=== PATIENT | female | born 1975 | race African-American/Black ===

== ENCOUNTER 2018-01-25 11:13 | Emergency (ER) | payer OTHER ==
[2018-01-25] MEDS: HYDROcodone/APAP 5/325MG 1 TAB TABLET PO (11:45)
== END 2018-01-25 13:40 | disposition home or self-care (01) ==
LOC: ER 11:13
DX: M25.512 Pain in left shoulder (principal); M25.552 Pain in left hip; R07.89 Other chest pain; E11.9 Type 2 diabetes mellitus without complications; I10 Essential (primary) hypertension; Z98.51 Tubal ligation status; V48.5XXA Car driver injured in noncollision transport accident in traffic accident, initial encounter; Y93.I9 Activity, other involving external motion; Y92.410 Unspecified street and highway as the place of occurrence of the external cause; Y99.8 Other external cause status
CPT/HCPCS: 71046; 73030; 73502; 99284

== ENCOUNTER 2018-02-28 21:23 | Emergency (ER) | payer OTHER ==
[2018-02-28 22:04] LABS: ADD MAN DIFF? NO
[2018-02-28 22:06] LABS: BASO # 0.1 x10^3/uL (0.0-0.2); BASO % 1 % (0-3); EOS # 0.3 x10^3/uL (0.0-0.7); EOS % 2 % (0-3); HEMATOCRIT 33.2 % (36.0-47.0); HEMOGLOBIN 11.4 g/dL (12.0-15.5); LYMPH # 3.9 x10^3/uL (1.0-4.8); LYMPH % 34 % (24-48); MEAN CORPUSCULAR HEMOGLOBIN 25 pg (25-35); MEAN CORPUSCULAR HGB CONC 34 g/dL (31-37); MEAN CORPUSCULAR VOLUME 73 fL (79-100); MONO # 0.8 x10^3/uL (0.0-1.1); MONO % 7 % (0-9); NEUT # 6.5 x10^3uL (1.8-7.7); NEUT % 56 % (31-73); PLATELET COUNT 418 x10^3/uL (140-400); RED BLOOD COUNT 4.57 x10^6/uL (3.50-5.40); RED CELL DISTRIBUTION WIDTH 17.1 % (11.5-14.5); WHITE BLOOD COUNT 11.6 x10^3/uL (4.0-11.0)
[2018-02-28] MEDS: ASPIRIN CHEWABLE 81 MG TABLET. PO (22:12)
[2018-02-28] MEDS: DEXAMETHASONE SOD PHOS 4 MG/ML VIAL IV (22:13)
[2018-02-28] MEDS: IV NORMAL SALINE 1000ML BAG 1,000 ML IV (22:14)
[2018-02-28 22:16] LABS: ANION GAP 8 (6-14); BLOOD UREA NITROGEN 8 mg/dL (7-20); BUN/CREATININE RATIO 7 (6-20); CALCIUM 8.9 mg/dL (8.5-10.1); CARBON DIOXIDE 23 mmol/L (21-32); CHLORIDE 104 mmol/L (98-107); CREATININE 1.1 mg/dL (0.6-1.0); GFR 65.6; GLUCOSE 116 mg/dL (70-99); POTASSIUM 3.5 mmol/L (3.5-5.1); SODIUM 135 mmol/L (136-145)
[2018-02-28 22:23] LABS: URINE HCG POC HCG NEGATIVE (Negative)
[2018-02-28 22:24] LABS: TROPONINI < 0.017 ng/mL (0.000-0.055)
[2018-02-28 22:24] LABS: BILIRUBIN,URINE NEGATIVE (NEG); CLARITY,URINE CLEAR; COLOR,URINE YELLOW; GLUCOSE,URINE NEGATIVE (NEG); NITRITE,URINE NEGATIVE (NEG); PH,URINE 5.5; PROTEIN,URINE NEGATIVE (NEG-TRACE); UROBILINOGEN,URINE 0.2 mg/dL (0.2 mg/dL)
[2018-02-28 22:26] LABS: ALBUMIN 3.2 g/dL (3.4-5.0); ALBUMIN/GLOBULIN RATIO 0.8 (1.0-1.7); ALK PHOS 80 U/L (46-116); ALT (SGPT) 15 U/L (14-59); AST (SGOT) 16 U/L (15-37); MAGNESIUM 1.8 mg/dL (1.8-2.4); TOTAL BILIRUBIN 0.3 mg/dL (0.2-1.0); TOTAL PROTEIN 7.2 g/dL (6.4-8.2)
[2018-02-28 22:29] LABS: CKMB INDEX 0.7 % (0-4); CKMB MASS 1.5 ng/mL (0.0-3.6); CREATINE KINASE 221 U/L (26-192)
[2018-02-28 22:30] LABS: AMPHETAMINE/METHAMPHETAMINE NEG (NEG); BARBITURATES NEG (NEG); BENZODIAZEPINES NEG (NEG); CANNABINOIDS NEG (NEG); COCAINE NEG (NEG); ETHANOL, URINE NEG (NEG); METHADONE NEG (NEG); OPIATES NEG (NEG); PHENCYCLIDINE NEG (NEG)
[2018-02-28 22:35] LABS: BACTERIA,URINE 0 /HPF (0-FEW); SQUAMOUS EPITHELIAL CELL,UR MOD /LPF; WBC,URINE OCC /HPF (0-4)
[2018-02-28] MEDS: ACETAMINOPHEN 325 MG TABLET. PO (22:40)
== END 2018-02-28 23:00 | disposition home or self-care (01) ==
LOC: ER 21:23
DX: R07.89 Other chest pain (principal); E11.9 Type 2 diabetes mellitus without complications; I10 Essential (primary) hypertension; Z98.51 Tubal ligation status
CPT/HCPCS: 36415; 71046; 80053; 80307; 81001; 81025; 82553; 83735; 84484; 85025; 87086; 93005; 96361; 96374; 99285-25; J1100; J7030

== ENCOUNTER 2018-12-01 20:01 | Emergency (ER) | payer OTHER ==
[~2018-12-01] VITALS: Ht 177.8 cm; Wt 115.7 kg
[~2018-12-01 20:01] MED LIST: ATEN50TA PO; CYCL10TA2 PO; HYDR-2761 PO; HYDR-3164 PO; LISI-334 PO; METH4TAB2 PO; NAPR-682 PO; ORPH100T PO
--- NOTE | 2018-12-01 20:44 | PHYS DOC ---
Past Medical History Past Medical History: Diabetes-Type II, Hypertension Additional Past Medical Histor: EMPTY TIMMY SYNDROME Past Surgical History: Tubal ligation Additional Past Surgical Histo: CARPAL TUNNEL SX Alcohol Use: None Drug Use: None Adult General Chief Complaint Chief Complaint: CHEST PAIN [facility] HPI Patient is a 43-year-old female who presents with complaint of one month long history of chest pain to left of midline. Patient describes pain as sharp and stabbing in nature. She states the pain is intermittent. She denies any exacerbating or alleviating factors. Patient also states over the last 2 weeks that she has had some dizziness and last night the dizziness and gotten so severe that she became nauseated and vomited twice. She describes the dizziness as feeling like she is in a fall and sometimes feeling like things are spinning. Patient states that she was scheduled to go see a document management specialist but states the document management specialist is not able to get her in to see her until early in December. She rates the pain in her chest that a 7 out of 10. She denies any shortness of breath and states that she has had no cough. Patient also admits that she has some swelling and pain in her left leg. Review of Systems Review of Systems Constitutional: Denies fever or chills [] Respiratory: Denies cough or shortness of breath [] Cardiovascular: No additional information not addressed in HPI [] GI: Denies abdominal pain. Complains of nausea and vomiting without diarrhea [] Musculoskeletal: Denies back pain or joint pain [] Integument: Denies rash or skin lesions [] Neurologic: Denies headache, focal weakness or sensory changes [] All other systems were reviewed and found to be within normal limits, except as documented in this note. Current Medications Current Medications Current Medications Medications (Trade) Dose Ordered Sig/[facility] Start Time Stop Time Status Last Admin Dose Admin Aspirin (Children'S Aspirin) 324 mg 1X ONCE 12/01/18 20:45 12/01/18 20:46 DC 12/01/18 21:13 324 MG Allergies Allergies Allergies Coded Allergies Type Severity Reaction Last Updated Verified No Known Drug Allergies 01/17/14 No Physical Exam Physical Exam Constitutional: Well developed, well nourished, no acute distress, non-toxic appearance. [] HENT: Normocephalic, atraumatic, bilateral external ears normal, oropharynx moist, no oral exudates, nose normal. [] Eyes: PERRLA, EOMI, conjunctiva normal, no discharge. [] Neck: Normal range of motion, no tenderness, supple, no stridor. [] Cardiovascular:Heart rate regular rhythm, no murmur [] Lungs & Thorax: Bilateral breath sounds clear to auscultation [] Abdomen: Bowel sounds normal, soft, no tenderness. [] Skin: Warm, dry, no erythema, no rash. [] Extremities: No cyanosis, no clubbing, ROM intact. [] Neurologic: Alert and oriented X 3, no focal deficits noted. [] Current Patient Data Vital Signs Vital Signs Date Time Temp Pulse Resp B/P (MAP) Pulse Ox O2 Delivery O2 Flow Rate FiO2 12/01/18 20:14 98.6 63 18 115/60 (78) 98 Room Air 98.6 Lab Values Laboratory Tests Test 12/01/18 20:29 12/01/18 21:05 12/01/18 21:18 White Blood Count 9.3 x10^3/uL (4.0-11.0) Red Blood Count 4.59 x10^6/uL (3.50-5.40) Hemoglobin 9.6 g/dL (12.0-15.5) L Hematocrit 29.7 % (36.0-47.0) L Mean Corpuscular Volume 65 fL (79-100) L Mean Corpuscular Hemoglobin 21 pg (25-35) L Mean Corpuscular Hemoglobin Concent 32 g/dL (31-37) Red Cell Distribution Width 18.9 % (11.5-14.5) H Platelet Count 456 x10^3/uL (140-400) H Neutrophils (%) (Auto) 48 % (31-73) Lymphocytes (%) (Auto) 42 % (24-48) Monocytes (%) (Auto) 6 % (0-9) Eosinophils (%) (Auto) 2 % (0-3) Basophils (%) (Auto) 1 % (0-3) Neutrophils # (Auto) 4.5 x10^3uL (1.8-7.7) Lymphocytes # (Auto) 3.9 x10^3/uL (1.0-4.8) Monocytes # (Auto) 0.6 x10^3/uL (0.0-1.1) Eosinophils # (Auto) 0.2 x10^3/uL (0.0-0.7) Basophils # (Auto) 0.1 x10^3/uL (0.0-0.2) Segmented Neutrophils % 55 % (35-66) Lymphocytes % 31 % (24-48) Monocytes % 8 % (0-10) Eosinophils % 5 % (0-5) Basophils % 1 % (0-3) Platelet Estimate Increased (ADEQUATE) Large Platelets Occ Giant Platelets Occ Polychromasia Slight Target Cells Occ Helmet Cells Occ D-Dimer (Blessing) 0.44 ug/mlFEU (0.00-0.50) Sodium Level 141 mmol/L (136-145) Potassium Level 4.3 mmol/L (3.5-5.1) Chloride Level 107 mmol/L (98-107) Carbon Dioxide Level 23 mmol/L (21-32) Anion Gap 11 (6-14) Blood Urea Nitrogen 12 mg/dL (7-20) Creatinine 0.9 mg/dL (0.6-1.0) Estimated GFR (Cockcroft-Gault) 82.3 BUN/Creatinine Ratio 13 (6-20) Glucose Level 123 mg/dL (70-99) H Calcium Level 9.3 mg/dL (8.5-10.1) Magnesium Level 1.9 mg/dL (1.8-2.4) Total Bilirubin 0.2 mg/dL (0.2-1.0) Aspartate Amino Transferase (AST) 20 U/L (15-37) Alanine Aminotransferase (ALT) 18 U/L (14-59) Alkaline Phosphatase 88 U/L (46-116) Troponin I Quantitative < 0.017 ng/mL (0.000-0.055) HO-Ydv-A-Type Natriuretic Peptide 71 pg/mL (0-124) Total Protein 7.2 g/dL (6.4-8.2) Albumin 3.1 g/dL (3.4-5.0) L Albumin/Globulin Ratio 0.8 (1.0-1.7) L Lipase 250 U/L (73-393) Urine Color Yellow Urine Clarity Clear Urine pH 5.5 Urine Specific [place] 1.025 Urine Protein Negative mg/dL (NEG-TRACE) Urine Glucose (UA) Negative mg/dL (NEG) Urine Ketones (Stick) Negative mg/dL (NEG) Urine Blood Negative (NEG) Urine Nitrite Negative (NEG) Urine Bilirubin Negative (NEG) Urine Urobilinogen Dipstick 1.0 mg/dL (0.2 mg/dL) Urine Leukocyte Esterase Negative (NEG) Urine RBC 0 /HPF (0-2) Urine WBC 1-4 /HPF (0-4) Urine Squamous Epithelial Cells Occ /LPF Urine Bacteria 0 /HPF (0-FEW) Urine Mucus Mod /LPF POC Urine HCG, Qualitative Hcg negative (Negative) Laboratory Tests 12/01/18 20:29 Laboratory Tests 12/01/18 20:29 EKG EKG [] Interpretation Time: EKG demonstrates normal sinus rhythm with rate of 62. Radiology/Procedures Radiology/Procedures [] Impressions: PROCEDURE: PORTABLE CHEST 1V CLINICAL INDICATION: chest pain x1 month. radiating down left arm COMPARISON: 02/28/2018 FINDINGS: No pneumothorax identified. Cardiac and mediastinal contours unremarkable. No pulmonary consolidation or acute airspace disease. No acute osseous abnormalities identified. IMPRESSION: No pulmonary consolidation or acute airspace disease. Electronically signed by: Jesus Nielson DO (12/01/2018 10:06 PM) [facility] Course & Med Decision Making Course & Med Decision Making Pertinent Labs and Imaging studies reviewed. (See chart for details) She moved to room upon arrival was evaluated by your medical staff after which a cardiac workup was initiated. Cardiac workup has returned unremarkable. Findings reviewed with patient and given length of time before she is able to get in to see a document management specialist, I did offer admission with cardiology consult. Patient states that she does not want to be admitted and wants to be discharged home. Dragon Disclaimer Dragon Disclaimer This electronic medical record was generated, in whole or in part, using a voice recognition dictation system. Departure Departure Impression: Primary Impression: Atypical chest pain Additional Impression: Vertigo Disposition: 01 HOME, SELF-CARE Condition: STABLE Referrals: BHAVESH TATE MD (PCP) Patient Instructions: Chest Pain (Nonspecific), Vertigo Scripts Meclizine Hcl (MECLIZINE HCL) 25 Mg Tablet 25 MG PO PRN TID PRN for DIZZINESS, #30 dizziness Prov: ELMER DAMIAN Jr. DO 12/01/18 Tramadol Hcl (TRAMADOL HCL) 50 Mg Tablet 50 MG PO Q6HRS PRN for PAIN, #12 TAB Prov: ELMER DAMIAN Jr. DO 12/01/18 Ondansetron Hcl (ZOFRAN) 4 Mg Tablet 4 MG PO PRN TID PRN for NAUSEA, #15 nausea/vomiting Prov: ELMER DAMIAN Jr. DO 12/01/18 Problem Qualifiers ELMER DAMIAN Jr. DO Dec 01, 2018 20:44
[2018-12-01] MEDS ORDERED: ASPIRIN CHEWABLE 81 MG TABLET. PO ONE (20:45)
[2018-12-01 20:49] LABS: BASO # 0.1 x10^3/uL (0.0-0.2); BASO % 1 % (0-3); EOS # 0.2 x10^3/uL (0.0-0.7); EOS % 2 % (0-3); HEMATOCRIT 29.7 % (36.0-47.0); HEMOGLOBIN 9.6 g/dL (12.0-15.5); LYMPH # 3.9 x10^3/uL (1.0-4.8); LYMPH % 42 % (24-48); MEAN CORPUSCULAR HEMOGLOBIN 21 pg (25-35); MEAN CORPUSCULAR HGB CONC 32 g/dL (31-37); MEAN CORPUSCULAR VOLUME 65 fL (79-100); MONO # 0.6 x10^3/uL (0.0-1.1); MONO % 6 % (0-9); NEUT # 4.5 x10^3uL (1.8-7.7); NEUT % 48 % (31-73); PLATELET COUNT 456 x10^3/uL (140-400); RED BLOOD COUNT 4.59 x10^6/uL (3.50-5.40); RED CELL DISTRIBUTION WIDTH 18.9 % (11.5-14.5); WHITE BLOOD COUNT 9.3 x10^3/uL (4.0-11.0)
[2018-12-01 20:55] LABS: CALCIUM 9.3 mg/dL (8.5-10.1); CREATININE 0.9 mg/dL (0.6-1.0); GFR 82.3; POTASSIUM 4.3 mmol/L (3.5-5.1)
[2018-12-01 21:01] LABS: ALBUMIN 3.1 g/dL (3.4-5.0); ALBUMIN/GLOBULIN RATIO 0.8 (1.0-1.7); MAGNESIUM 1.9 mg/dL (1.8-2.4); TOTAL BILIRUBIN 0.2 mg/dL (0.2-1.0); TOTAL PROTEIN 7.2 g/dL (6.4-8.2)
[2018-12-01 21:26] LABS: BILIRUBIN,URINE NEGATIVE (NEG); CLARITY,URINE CLEAR; COLOR,URINE YELLOW; NITRITE,URINE NEGATIVE (NEG); PH,URINE 5.5; PROTEIN,URINE NEGATIVE (NEG-TRACE)
[2018-12-01 21:35] LABS: BACTERIA,URINE 0 /HPF (0-FEW); RBC,URINE 0 /HPF (0-2); SQUAMOUS EPITHELIAL CELL,UR OCC /LPF
[2018-12-01 21:49] LABS: % BASOS 1 % (0-3); % EOS 5 % (0-5); % LYMPHS 31 % (24-48); % MONOS 8 % (0-10); % SEGS 55 % (35-66)
[2018-12-01 21:50] LABS: HELMET CELLS OCC; PLT ESTIMATE INCREASED (ADEQUATE); POLYCHROMASIA SLIGHT; TARGET CELLS OCC
--- NOTE | 2018-12-01 21:58 | EKG ---
[facility] [address] [place] [address] Test Date: 2018-12-01 Test Time: 20:14:21 Pat Name: KLEVER VALERA Department: Room: Gender: F Teacher Specialist: : 1975 Requested By: ELMER DAMIAN Order Number: [id number] Reading MD: Measurements Intervals [place] Rate: 61 P: 50 CA: 148 QRS: 33 QRSD: 84 T: -24 QT: 406 QTc: 414 Interpretive Statements SINUS RHYTHM T ABNORMALITY IN HIGH LATERAL LEADS INFERIOR LEADS ABNORMAL ECG No previous ECG available for comparison
[2018-12-01 22:10] VITALS: BP 133/84
--- NOTE | 2018-12-01 22:10 | RAD ---
PROCEDURE: PORTABLE CHEST 1V CLINICAL INDICATION: chest pain x1 month. radiating down left arm COMPARISON: 02/28/2018 FINDINGS: No pneumothorax identified. Cardiac and mediastinal contours unremarkable. No pulmonary consolidation or acute airspace disease. No acute osseous abnormalities identified. IMPRESSION: No pulmonary consolidation or acute airspace disease. Electronically signed by: Jesus Nielson DO (12/01/2018 10:06 PM) [facility]
[2018-12-01] MEDS ORDERED: TRAM50TA PO (22:20)
[2018-12-01] MEDS ORDERED: MECL25TA3 PO (22:20)
[2018-12-01] MEDS ORDERED: ONDA4TAB7 PO (22:20)
== END 2018-12-01 22:54 | disposition home or self-care (01) ==
LOC: ER 20:01
DX: R07.89 Other chest pain (principal); R42 Dizziness and giddiness; R11.2 Nausea with vomiting, unspecified; I10 Essential (primary) hypertension; E11.9 Type 2 diabetes mellitus without complications; Z98.51 Tubal ligation status
CPT/HCPCS: 36415; 71045; 80053; 81001; 81025; 83690; 83735; 83880; 84484; 85007; 85025; 85379; 93005; 99284-25

== ENCOUNTER 2019-04-30 10:50 | Emergency (ER) | payer MEDICAID, OTHER ==
[~2019-04-30] VITALS: Ht 177.8 cm; Wt 117.9 kg
[~2019-04-30 10:50] MED LIST changes: +MECL25TA3 PO; +ONDA4TAB7 PO; +TRAM50TA PO
[2019-04-30] MEDS ORDERED: fentaNYL PF VIAL 100 MCG/2 ML VIAL IV ONE (11:30)
[2019-04-30 11:33] LABS: BASO # 0.1 x10^3/uL (0.0-0.2); BASO % 1 % (0-3); EOS # 0.3 x10^3/uL (0.0-0.7); EOS % 3 % (0-3); HEMATOCRIT 30.6 % (36.0-47.0); HEMOGLOBIN 9.8 g/dL (12.0-15.5); LYMPH # 2.4 x10^3/uL (1.0-4.8); LYMPH % 30 % (24-48); MEAN CORPUSCULAR HEMOGLOBIN 21 pg (25-35); MEAN CORPUSCULAR HGB CONC 32 g/dL (31-37); MEAN CORPUSCULAR VOLUME 66 fL (79-100); MONO # 0.5 x10^3/uL (0.0-1.1); MONO % 6 % (0-9); NEUT # 4.9 x10^3uL (1.8-7.7); NEUT % 60 % (31-73); PLATELET COUNT 386 x10^3/uL (140-400); RED BLOOD COUNT 4.65 x10^6/uL (3.50-5.40); RED CELL DISTRIBUTION WIDTH 20.6 % (11.5-14.5); WHITE BLOOD COUNT 8.2 x10^3/uL (4.0-11.0)
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
[2019-04-30 11:54] LABS: CALCIUM 8.7 mg/dL (8.5-10.1); CREATININE 0.8 mg/dL (0.6-1.0); GFR 94.3; POTASSIUM 3.9 mmol/L (3.5-5.1)
[2019-04-30 11:59] LABS: ALBUMIN/GLOBULIN RATIO 0.8 (1.0-1.7); MAGNESIUM 1.7 mg/dL (1.8-2.4); TOTAL BILIRUBIN 0.4 mg/dL (0.2-1.0)
[2019-04-30 12:08] LABS: PROTHROMBIN TIME PATIENT 12.6 SEC (11.7-14.0)
[2019-04-30 12:12] LABS: D-DIMER 0.78 ug/mlFEU (0.00-0.50)
[2019-04-30 12:32] LABS: BILIRUBIN,URINE NEGATIVE (NEG); CLARITY,URINE CLEAR; COLOR,URINE YELLOW; NITRITE,URINE NEGATIVE (NEG); PH,URINE 6.5; PROTEIN,URINE NEGATIVE (NEG-TRACE); UROBILINOGEN,URINE 0.2 mg/dL (0.2 mg/dL)
[2019-04-30 12:42] LABS: BACTERIA,URINE 0 /HPF (0-FEW); RBC,URINE 0 /HPF (0-2)
[2019-04-30] MEDS ORDERED: CONTRAST GIVEN. MC PRN (12:45)
[2019-04-30] MEDS ORDERED: IOHEXOL 350 MG/ML 100 ML VIAL. IV ONE (13:00)
--- NOTE | 2019-04-30 13:05 | EKG ---
[facility] [address] [place] [address] Test Date: 2019-04-30 Test Time: 11:03:13 Pat Name: KLEVER COX Department: Room: Gender: F Manager Product Management: : 1975 Requested By: CONSUELO ANDERSON Order Number: [id number] Reading MD: Measurements Intervals [place] Rate: 54 P: 58 [place]: 152 QRS: 41 QRSD: 84 T: 8 QT: 472 QTc: 449 Interpretive Statements SINUS RHYTHM NON SPECIFIC T ABNORMALITY BORDERLINE ECG No previous ECG available for comparison
--- NOTE | 2019-04-30 13:18 | RAD ---
Examination: CT ANGIOGRAPHY CHEST History: Right side chest pain, elevated d-dimer, recent surgery history. Comparison/Correlation: None Findings: Axial images of chest were obtained following IV contrast: To pulmonary arteriography protocol. MIP images were provided. Sagittal and coronal reformatted images were provided. Radiopaque density is present within the superior left chest wall subcutaneous fat measuring up to 0.4 cm diameter. No surrounding inflammatory change about this foreign body. Tracheobronchial tree is unremarkable. No infiltrates. No pleural effusion or pericardial effusion. No mass. No enlarged thoracic lymph nodes. Pulmonary arterial vasculature is normal with no thromboembolic disease. Thoracic aorta is not optimally opacified for arteriographic assessment but is grossly unremarkable. Dilated cardiomegaly is present. Bony structures are unremarkable for the patient's age. Impression: Dilated cardiomegaly. No pulmonary arterial thromboembolic disease. No infiltrate. PQRS Compliance Statement: One or more of the following individualized dose reduction techniques were utilized for this examination: 1. Automated exposure control 2. Adjustment of the mA and/or kV according to patient size 3. Use of iterative reconstruction technique Electronically signed by: Jeremias Aguirre MD (04/30/2019 1:15 PM) [id number]
[2019-04-30 14:00] VITALS: BP 155/98
[2019-04-30 14:06] LABS: ANISOCYTOSIS MOD; HYPOCHROMIA MOD; MICROCYTOSIS MARKED; PLT ESTIMATE ADEQUATE (ADEQUATE); POLYCHROMASIA SLIGHT; TARGET CELLS FEW
== END 2019-04-30 14:47 | disposition home or self-care (01) ==
LOC: ER 10:50
DX: G89.18 Other acute postprocedural pain (principal); R10.30 Lower abdominal pain, unspecified; E83.42 Hypomagnesemia; R07.89 Other chest pain; D64.9 Anemia, unspecified; I51.7 Cardiomegaly; E80.7 Disorder of bilirubin metabolism, unspecified; R42 Dizziness and giddiness; E78.00 Pure hypercholesterolemia, unspecified; E11.9 Type 2 diabetes mellitus without complications; I10 Essential (primary) hypertension; I25.10 Atherosclerotic heart disease of native coronary artery without angina pectoris; Z86.718 Personal history of other venous thrombosis and embolism; Z86.711 Personal history of pulmonary embolism; Z90.710 Acquired absence of both cervix and uterus; Z98.51 Tubal ligation status
CPT/HCPCS: 36415; 71045; 71275; 80053; 81001; 83690; 83735; 83880; 84484; 85025; 85379; 85610; 87086; 93005; 96374; 99285; J3010; Q9967

== ENCOUNTER 2022-03-14 00:16 | Emergency (ER) | payer MEDICAID ==
[~2022-03-14] VITALS: Ht 177.8 cm; Wt 101.8 kg
[~2022-03-14 00:16] MED LIST changes: +CYCL10TA19 PO; -CYCL10TA2 PO; -LISI-334 PO; +LISI20TA18 PO; +MECL-75 PO; -MECL25TA3 PO
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
--- NOTE | 2022-03-14 03:47 | PHYS DOC ---
Past Medical History Past Medical History: CAD, Cancer, Diabetes-Type II, High Cholesterol, Hy pertension Additional Past Medical Histor: EMPTY TIMMY SYNDROME, cervical cancer Past Surgical History: , Hysterectomy, Tubal ligation, Other Additional Past Surgical Histo: Gastric sleeve, carpal tunnel Smoking Status: Current Every Day Smoker Alcohol Use: None Drug Use: None General Adult EDM: Chief Complaint: SHORTNESS OF BREATH HPI: HPI: Patient is a 46-year-old female with past medical history of gastric sleeve who presents today with shortness of breath. She was laying flat when she felt a sudden burning sensation in her throat and then a burning sensation in her throat and followed by a mucousy congestion in her chest wall which she coughed up. She currently feels okay however this worried her significantly and she called EMS which brought her in. Per EMS her oxygen saturation and vital signs were completely normal in route. Patient is feeling better and back to normal currently. The only symptom she has currently is the burning in her throat. Review of Systems: Review of Systems: Constitutional: Denies fever or chills. [] Eyes: Denies change in visual acuity. [] HENT: Denies nasal congestion or sore throat. [] Respiratory: Denies cough or shortness of breath. [] Cardiovascular: Denies chest pain or edema. [] GI: Denies abdominal pain, nausea, vomiting, bloody stools or diarrhea. [] : Denies dysuria. [] Musculoskeletal: Denies back pain or joint pain. [] Integument: Denies rash. [] Neurologic: Denies headache, focal weakness or sensory changes. [] Endocrine: Denies polyuria or polydipsia. [] Lymphatic: Denies swollen glands. [] Psychiatric: Denies depression or anxiety. [] Heart Score: C/O Chest Pain: No Risk Factors: Risk Factors: DM, Current or recent (<one month) smoker, HTN, HLP, family history of CAD, obesity. Risk Scores: Score 0 - 3: 2.5% MACE over next 6 weeks - Discharge Home Score 4 - 6: 20.3% MACE over next 6 weeks - Admit for Clinical Observation Score 7 - 10: 72.7% MACE over next 6 weeks - Early Invasive Strategies Allergies: Allergies: Allergies Coded Allergies Type Severity Reaction Last Updated Verified No Known Drug Allergies 03/14/22 No Physical Exam: PE: Constitutional: Well developed, well nourished, no acute distress, non-toxic appearance. [] HENT: Normocephalic, atraumatic, bilateral external ears normal, oropharynx mois t, no oral exudates, nose normal. [] Eyes: PERRLA, EOMI, conjunctiva normal, no discharge. [] Neck: Normal range of motion, no tenderness, supple, no stridor. [] Cardiovascular:Heart rate regular rhythm, no murmur [] Lungs & Thorax: Bilateral breath sounds clear to auscultation [] Abdomen: Bowel sounds normal, soft, no tenderness, no masses, no pulsatile masses. [] Skin: Warm, dry, no erythema, no rash. [] Back: No tenderness, no CVA tenderness. [] Extremities: No tenderness, no cyanosis, no clubbing, ROM intact, no edema. [] Neurologic: Alert and oriented X 3, normal motor function, normal sensory function, no focal deficits noted. [] Psychologic: Affect normal, judgement normal, mood normal. [] Current Patient Data: Vital Signs: Vital Signs Date Time Temp Pulse Resp B/P (MAP) Pulse Ox O2 Delivery O2 Flow Rate FiO2 03/14/22 00:16 97.8 60 20 167/105 (125) 100 Room Air 97.8 EKG: EKG: [] Radiology/Procedures: Radiology/Procedures: [] Course & Med Decision Making: Course & Med Decision Making X-ray does not show any signs of pneumonitis or reflux. I suspect the patient had a slight bit of reflux that went down the tracheobronchial tree which caused the immediate shortness of breath after she had some gastritis. The patient is already on omeprazole. Instructed her to follow-up with her PCP and sleep with a few pillows. Swab and chest x-ray are unremarkable. Dragon Disclaimer: Dragon Disclaimer: This electronic medical record was generated, in whole or in part, using a voice recognition dictation system. Departure Departure Impression: Primary Impression: Acid reflux Additional Impression: Aspiration into airway Disposition: 06 HOME HEALTH CARE SERVICE Condition: STABLE Referrals: BHAVESH TATE MD (PCP) Patient Instructions: Gastritis, Adult ZAY BRICEÑO MD March 14, 2022 03:47
[2022-03-14 03:52] VITALS: BP 130/70
== END 2022-03-14 04:00 | disposition home health service (06) ==
LOC: ER 00:16
DX: K21.9 Gastro-esophageal reflux disease without esophagitis (principal); I25.10 Atherosclerotic heart disease of native coronary artery without angina pectoris; E11.9 Type 2 diabetes mellitus without complications; E78.00 Pure hypercholesterolemia, unspecified; I10 Essential (primary) hypertension; F17.200 Nicotine dependence, unspecified, uncomplicated; Z90.710 Acquired absence of both cervix and uterus; Z98.51 Tubal ligation status
CPT/HCPCS: 71046; 87070; 87880; 99285-25